=== PATIENT | male | born 1950 | race African-American/Black ===

== ENCOUNTER 2018-01-11 01:55 | Emergency (ER) | payer OTHER ==
[~2018-01-11] VITALS: Ht 177.8 cm; Wt 117.3 kg
[2018-01-11] MEDS ORDERED: PERCOCET 5/31 TABLET PO (02:34)
[2018-01-11 03:18] VITALS: BP 161/91
== END 2018-01-11 03:26 | disposition home or self-care (01) ==
LOC: EME 01:55
DX: M79.675 Pain in left toe(s) (principal); S92.422D Displaced fracture of distal phalanx of left great toe, subsequent encounter for fracture with routine healing
CPT/HCPCS: 73630; 99281; 99283